=== PATIENT | male | born 1985 | race Two or more races ===

== ENCOUNTER 2022-09-11 19:21 | Emergency (ER) | payer OTHER ==
[~2022-09-11] VITALS: Ht 185.4 cm; Wt 181.4 kg
== END 2022-09-11 21:15 | disposition home or self-care (01) ==
LOC: ER 19:21
DX: G44.209 Tension-type headache, unspecified, not intractable (principal)

== ENCOUNTER 2022-12-04 01:12 | Emergency (ER) | payer OTHER ==
[~2022-12-04] VITALS: Ht 185.4 cm; Wt 181.4 kg
[2022-12-04] MEDS ORDERED: NIFEDIPINE ER30 M1 PO (03:45)
== END 2022-12-04 04:26 | disposition home or self-care (01) ==
LOC: ER 01:12
DX: I10 Essential (primary) hypertension (principal)